=== PATIENT | female | born 1970 | race Two or more races ===

== ENCOUNTER 2017-04-18 15:00 | Inpatient (IN) | payer BC ==
[~2017-04-18] VITALS: Ht 167.6 cm; Wt 65.8 kg
[2017-04-18 20:00] VITALS: BP 141/76
--- NOTE | 2017-04-18 20:00 | NUR ---
MS RN NOTE RECEIVED PATIENT [facility] FROM [facility]. PATIENT IS ALERT AND ORIENTED X4, WITH NO RESPIRATORY DISTRESS. PATIENT STATES THAT SHE IS HAVING 6/10 PAIN TO HER ABDOMEN. RELAXATION TECHNIQUES PROVIDED. WAITING FOR MD ORDERS. PATIENT IS ABLE TO AMBULATORY. SKIN IS INTACT, WITH NO BREAKDOWN OR BRUISING NOTED. ID BAND PLACED ON WRIST. PATIENT STATES THAT SHE DOES NOTE TAKE ANY HOME MEDS. BELONGINGS CHECKED AND ACCOUNTED FOR. IV SITE INTACT. ORIENTED PATIENT TO ROOM AND TO UNIT. BED LOCKED AND IN LOWEST POSITION. SIDE RAILS UP, CALL LIGHT WITHIN REACH. WILL CONTINUE TO MONITOR.
[2017-04-18] MEDS ORDERED: MAGNESIUM HYDROXIDE 30 ML UDC PO PRN (21:00)
[2017-04-18] MEDS ORDERED: ONDANSETRON HCL/PF 4 MG/2 ML VIAL IVP PRN (21:00)
[2017-04-18] MEDS ORDERED: MAG HYDROX/AL HYDROX/SIMETH 30 ML UDC PO PRN (21:00)
[2017-04-18] MEDS ORDERED: ENOXAPARIN SODIUM 40 MG/0.4 ML DISP.SYRIN SQ SCH (21:00)
[2017-04-18] MEDS ORDERED: ACETAMINOPHEN 325 MG TABLET PO PRN (21:00)
[2017-04-18] MEDS ORDERED: Z GUARD REMEDY 2 OZ OINT TP PRN (21:00)
[2017-04-18] MEDS ORDERED: ZOLPIDEM TARTRATE 5 MG TABLET PO PRN (21:00)
[2017-04-18] MEDS ORDERED: HYDROCODONE/APAP 10/325MG 1 EA TABLET PO PRN (21:00)
[2017-04-18] MEDS ORDERED: HYDROMORPHONE 1 MG/1 ML DISP.SYRIN IV PRN (21:00)
[2017-04-18] MEDS ORDERED: ONDANSETRON HCL/PF 4 MG/2 ML VIAL ONE (21:14)
[2017-04-18] MEDS ORDERED: TAMSULOSIN 0.4 MG CAP.SR.24H ONE (21:15)
[2017-04-18] MEDS ORDERED: PIPERACILLIN /TAZOBACTAM 2.25 G VIAL IV ONE (21:16)
[2017-04-18] MEDS ORDERED: hydrALAZINE HCL 25 MG TABLET PO PRN (21:30)
[2017-04-18] MEDS ORDERED: HYDROMORPHONE INJ 2 MG/ML DISP.SYRIN ONE (21:35)
[2017-04-18] MEDS: PIPERACILLIN /TAZOBACTAM 4.5 G in IV D5W 50 ML IV SCH (21:35)
[2017-04-18] MEDS: HYDROMORPHONE INJ 2 MG/ML DISP.SYRIN IV PRN (21:41)
[2017-04-18] MEDS: IV NS 0.9% 1,000 ML IV PRN (21:41)
[2017-04-18 21:45] LABS: BASOPHILS # (AUTO) 0.1 /CMM (0.0-0.2); BASOPHILS % (AUTO) 0.4 % (0.0-2.0); EOSINOPHILS % (AUTO) 0.1 % (0.0-6.0); HEMATOCRIT 41 % (33-45); HEMOGLOBIN 13.9 g/dL (11.5-14.8); LYMPHOCYTES # (AUTO) 1.4 /CMM (0.8-4.8); LYMPHOCYTES % (AUTO) 9.9 % (20.0-44.0); MEAN CORPUSCULAR HEMOGLOBIN 31 PG (26.0-33.0); MEAN CORPUSCULAR HGB CONC 34 g/dl (31.0-36.0); MEAN CORPUSCULAR VOLUME 92 fL (82-100); MONOCYTES # (AUTO) 0.9 /CMM (0.1-1.30); MONOCYTES % (AUTO) 6.3 % (2.0-12.0); NEUTROPHILS # (AUTO) 11.8 /CMM (1.8-8.9); NEUTROPHILS % (AUTO) 83.3 % (43.0-81.0); PLATELET COUNT (AUTO) 305 /CMM (150-450); RDW COEFFICIENT OF VARIATION 12.5 (11.5-15.0); RED BLOOD CELL COUNT(AUTO) 4.49 MIL/uL (4.0-5.2); WHITE BLOOD COUNT (AUTO) 14.1 K/uL (4.3-11.0)
[2017-04-18] MEDS ORDERED: ENOXAPARIN SODIUM 40 MG/0.4 ML DISP.SYRIN SQ ONE (21:48)
[2017-04-18] MEDS ORDERED: TAMSULOSIN 0.4 MG CAP.SR.24H PO SCH (22:00)
[2017-04-18 22:07] LABS: CALCIUM, SERUM 8.2 mg/dL (8.5-10.1); CREATININE 1.3 mg/dL (0.6-1.3); MAGNESIUM 1.8 mg/dL (1.8-2.4); PHOSPHORUS 2.8 mg/dL (2.5-4.9); POTASSIUM 3.7 mmol/L (3.5-5.1)
[2017-04-18 22:08] LABS: INR 0.99 (0.87-1.13); PROTHROMBIN TIME 10.3 SECS (9.5-12.7)
[2017-04-19] MEDS ORDERED: PIPERACILLIN /TAZOBACTAM 2.25 G VIAL IV ONE (04:21)
[2017-04-19] MEDS: PIPERACILLIN /TAZOBACTAM 4.5 G in IV D5W 50 ML IV SCH (04:31)
--- NOTE | 2017-04-19 06:24 | NUR ---
MS RN NOTE PATIENT STABLE. MRSA SWAB COLLECTED AND PLACED IN FRIDGE. ALL NEEDS MET AND ATTENDED TO. WILL ENDORSE TO DAY SHIFT FOR TAIWO.
[2017-04-19 06:57] LABS: HEMATOCRIT 34 % (33-45); HEMOGLOBIN 12.1 g/dL (11.5-14.8); MEAN CORPUSCULAR HEMOGLOBIN 32 PG (26.0-33.0); MEAN CORPUSCULAR HGB CONC 35 g/dl (31.0-36.0); MEAN CORPUSCULAR VOLUME 91 fL (82-100); PLATELET COUNT (AUTO) 255 /CMM (150-450); RDW COEFFICIENT OF VARIATION 12.6 (11.5-15.0); RED BLOOD CELL COUNT(AUTO) 3.78 MIL/uL (4.0-5.2); WHITE BLOOD COUNT (AUTO) 10.1 K/uL (4.3-11.0)
[2017-04-19 07:15] LABS: CALCIUM, SERUM 8.2 mg/dL (8.5-10.1); MAGNESIUM 2.2 mg/dL (1.8-2.4); PHOSPHORUS 2.4 mg/dL (2.5-4.9); POTASSIUM 3.5 mmol/L (3.5-5.1)
--- NOTE | 2017-04-19 07:44 | NUR ---
RN MS NOTES PATIENT ALERT AND ORIENTED X4, NO S/SX OF DISTRESS NOTED, IVF INFUSING AND TOLERATING WELL, C/O OF MIGRAINE, BUT STATED SHE'S FINE FOR NOW, AND REFUSED PAIN MEDICINE. INSTRUCTED PATIENT IF SYMPTOMS WORSEN TO CALL NURSE. PATIENT KEPT NPO AT THIS TIME, AWAITING FOR UROLOGIST CONSULT. NEEDS ATTENDED AND MET, CALL LIGHT WITHIN REACH, WILL CONTINUE TO MONITOR.
[2017-04-19 08:22] LABS: BASOPHILS % (AUTO) 0.4 % (0.0-2.0); EOSINOPHILS % (AUTO) 0.1 % (0.0-6.0); LYMPHOCYTES # (AUTO) 2.2 /CMM (0.8-4.8); LYMPHOCYTES % (AUTO) 21.8 % (20.0-44.0); MONOCYTES # (AUTO) 0.5 /CMM (0.1-1.30); MONOCYTES % (AUTO) 5.1 % (2.0-12.0); NEUTROPHILS # (AUTO) 7.2 /CMM (1.8-8.9); NEUTROPHILS % (AUTO) 72.6 % (43.0-81.0)
[2017-04-19] MEDS ORDERED: HYDROMORPHONE INJ 2 MG/ML DISP.SYRIN IV PRN (08:30)
[2017-04-19 08:42] LABS: LYMPHOCYTES % (MANUAL) 13 % (16-48); MONOCYTES % (MANUAL) 5 % (0-11.0); NEUTROPHILS % (MANUAL) 82 (42-76)
[2017-04-19] MEDS: IV NS 0.9% 1,000 ML IV PRN (08:55)
[2017-04-19] MEDS: HYDROMORPHONE INJ 2 MG/ML DISP.SYRIN IV PRN (11:45)
[2017-04-19] MEDS ORDERED: PIPERACILLIN /TAZOBACTAM 3.375 G in IV D5W 50 ML IV SCH (12:00)
--- NOTE | 2017-04-19 12:00 | NUR ---
RN MS NOTES PATIENT WAS SEEN BY DR. AL, UROLOGIST AND PATIENT AGREED TO DO AN OUTPATIENT SURGERY ON MONDAY AT 11AM, RECEIVED ORDER FOR DISCHARGE. ORDER NOTED AND CARRIED OUT. DR. AL ANSWERED PATIENT'S CONCERNS. PATIENT RECEIVED DISCHARGE INSTRUCTIONS, VERBALIZED UNDERSTANDING AND SIGNED PAPERWORKS. PATIENT ALERT AND ORIENTED X4, C/O LEFT ABDOMINAL PAIN AND MIGRAINE, DILAUDID ADMINISTERED, PATIENT'S SKIN ASSESSMENT COMPLETED, SKIN DRY AND INTACT, ALL NEEDS ATTENDED AND MET, PATIENT CLEARED TO EAT REGULAR DIET FOR LUNCH. ORDER CARRIED OUT. WILL CONTINUE TO MONITOR. PATIENT WOULD LIKE TO BE DISCHARGED AFTER LUNCH. BELONGINGS RECONCILED AND COMPLETE.
[2017-04-19] MEDS ORDERED: K PHOS NEUTRAL 250 MG TABLET PO ONE (14:00)
--- NOTE | 2017-04-19 16:15 | NUR ---
RN MS NOTES PATIENT ALERT AND ORIENTED X4, SLEEPY BUT AROUSABLE, PER PATIENT SHE FEELS OKAY, BUT FEELS A LITTLE DIZZY AND HEADACHE, TYLENOL OFFERED AND PATIENT ACCEPTED. PATIENT IS IN NO DISTRESS, NO SOB. REFUSED LUNCH, PER PATIENT SHE HAS NO APPETITE. NEEDS ATTENDED AND MET, CALL LIGHT WITHIN REACH, PER PATIENT SHE'S WAITING FOR HER FRIEND TO PICK HER UP.
--- NOTE | 2017-04-19 17:45 | NUR ---
TRAP OPERATOR NOTE PATIENT ALERT AND ORIENTED X4, STILL COMPLAINING OF SLIGHT DIZZINESS, BUT PATIENT STATED SHE'S FINE SHE CAN GO HOME. PIV REMOVED, SECURED WITH TAPE AND GAUZE, PATIENT REFUSED DINNER. PRESCRIPTION HANDED TO THE PATIENT. PATIENT LEFT THE FACILITY ACCOMPANIED BY A FRIEND, WITH ASSISTANCE TO THE CAR, VIA WHEELCHAIR.
== END 2017-04-19 17:41 | disposition home or self-care (01) | DRG 694 ==
LOC: MED 20:20
PROVIDERS: ADMIT Nurse Practitioner Acute Care; ATTEND Nurse Practitioner Acute Care
DX: N13.2 Hydronephrosis with renal and ureteral calculous obstruction (principal); D72.829 Elevated white blood cell count, unspecified; K21.9 Gastro-esophageal reflux disease without esophagitis; Z87.442 Personal history of urinary calculi
CPT/HCPCS: 36415; 80048-TC; 83735-TC; 84100-TC; 85025-TC; 85730-TC; 87081-TC; J1170; J1650; J2405; J2543; J7030; J7060; Z7610